=== PATIENT | female | born 1960 | race Caucasian/White ===

== ENCOUNTER 2020-09-19 15:34 | Emergency (ER) | payer OTHER, SELFPAY ==
[2020-09-19 15:46] VITALS: BP 148/81; PULSE 97; RESP 16; TEMP 36.6; O2SAT 99; BMI 25.0
--- NOTE | 2020-09-19 16:04 | XR_ITS ---
WS: [id number] Portable AP upright chest, 09/19/2020 Clinical Data: chest pain Comparison: None. Findings: No nodules, masses or effusions are seen. The heart is normal. The pulmonary vascularity is not increased. No pneumonia or pneumothorax is seen. XR/XR chest 1V portable [id number] Impression: Negative chest.
--- NOTE | 2020-09-19 16:04 | ECG_ITS ---
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 Measurements Intervals [place] Rate: 101 P: 64 [place]: 144 QRS: 69 QRSD: 77 T: 60 QT: 342 QTc: 445 Interpretive Statements SINUS TACHYCARDIA POSSIBLE LEFT ATRIAL ENLARGEMENT [-0.1mV P WAVE IN V1/V2] MODERATE ST DEPRESSION [0.05+ mV ST DEPRESSION] No previous ECG available for comparison Electronically Signed On 09-19-2020 20:13:25 AUTOMATIC DEVELOPER by Sarah Yates M.D. [id number]
[2020-09-19 16:17] LABS: Basophils # 0.1 10^3/uL (0.0-0.1); Basophils % 1.3 %; Eosinophils # 0.1 10^3/uL (0.0-0.8); Eosinophils % 1.7 %; Hematocrit 39.3 % (37.0-47.0); Hemoglobin 12.8 g/dL (11.5-15.3); Lymphocytes # 2.2 10^3/uL (0.8-4.8); Lymphocytes % 37.6 %; Mean Corpuscular HGB Conc 32.6 g/dL (30.0-36.0); Mean Corpuscular Hemoglobin 28.1 pg (28.0-34.0); Mean Corpuscular Volume 86.4 fL (81-99); Mean Platelet Volume 11.4 fL (7.4-10.4); Monocytes # 0.5 10^3/uL (0.2-0.9); Monocytes % 7.9 %; Neutrophils # 3.04 10^3/uL (1.8-7.7); Neutrophils % 51.3 %; Nucleated Red Blood Cells % 0 %; Platelet Count 249 10^3/cmm (130-400); Red Blood Count 4.55 10^6/uL (4.1-5.3); Red Cell Distribution Width 12.5 % (12.1-15.1); White Blood Count 5.9 10^3/uL (4.0-10.0)
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
[2020-09-19] MEDS: sodium chloride 0.9% 1,000 ML 999 ML IV (16:49)
[2020-09-19] MEDS: aspirin 81 mg Chew Tablet 324 MG PO (16:50)
[2020-09-19] MEDS: nitroglycerin 0.4 mg sublingual Tablet SUBLINGUAL ×2 (16:54→17:08)
[2020-09-19 16:56] LABS: Troponin(5th) Baseline 6 ng/L (0-10)
[2020-09-19 16:57] LABS: Alanine Aminotransferase 15 U/L (0-33); Albumin Level 4.4 g/dL (3.5-5.2); Alkaline Phosphatase 46 IU/L (35-105); Aspartate Amino Transferase 17 U/L (0-32); Blood Urea Nitrogen 7 mg/dL (8-23); Calcium 9.5 mg/dL (8.5-10.5); Carbon Dioxide 23 mmol/L (22-29); Chloride 102 mmol/L (98-107); Glomerular Filtration Rate 125.9 mL/min (90-130); Glucose 96 mg/dL (65-115); NT Pro B Type Natriuretic Pept 89 pg/mL (0-125); Osmolality Calculated 282 mOsm/kg (285-295); Sodium 137 mmol/L (136-145); Total Bilirubin 0.4 mg/dL (0.15-1.2); Total Protein 7.4 g/dL (6.6-8.7)
[2020-09-19 16:59] LABS: D Dimer 0.48 ug/mIFEU (0-0.59)
[2020-09-19 17:05] LABS: Anion Gap 15.9 (5-19); Potassium 3.9 mmol/L (3.5-5.1)
[2020-09-19 17:24] LABS: Add Urine Microscopic? YES; Bilirubin Urine Neg (Negative); Blood Urine 2+ (Negative); Glucose Urine UA Norm (Normal); Ketones Urine Negative (Negative); Leukocyte Esterase Urine Trace (Negative); Nitrate Urine Negative (Negative); Protein Urine Neg (Negative); Specific Gravity, Urine 1.005 (1.005-1.030); Urine Appearance Clear (CLEAR); Urine Color Straw (Yellow); Urobilinogen Urine Norm (Negative); pH Urine 7 (5-7)
[2020-09-19 17:27] LABS: RBC Urine 0-4 /hpf (0-2); Squamous Epithelial Cell Urine 0-4 /hpf (0-5)
[2020-09-19 17:28] LABS: Add Urine Culture? No; Bacteria Urine TRACE /hpf
[2020-09-19] MEDS: nitroglycerin 1 gm/inch oint Pkt 0.5 INCH TOPICAL (17:57)
[2020-09-19 17:59] VITALS: BP 116/62; PULSE 85; RESP 22; O2SAT 97
--- NOTE | 2020-09-19 18:04 | ECG_ITS ---
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 Measurements Intervals [place] Rate: 78 P: 62 TN: 149 QRS: 67 QRSD: 74 T: 62 QT: 361 QTc: 413 Interpretive Statements SINUS RHYTHM Compared to ECG 09/19/2020 15:49:51 Sinus tachycardia no longer present ST (T wave) deviation no longer present Electronically Signed On 09-19-2020 20:19:57 SLIME PLANT OPERATOR by Sarah Yates M.D. [id number]
[2020-09-19 18:31] VITALS: BP 114/62; PULSE 88; RESP 18; O2SAT 96
[2020-09-19 19:05] LABS: Troponin 5 2HR 6.62 ng/L (0-10); Troponin 5 2HR Delta 0.62 ABS# (0-10)
[2020-09-19 19:30] VITALS: BP 125/68; PULSE 84; RESP 18; O2SAT 96
[2020-09-19 20:21] VITALS: BP 108/63; PULSE 82; RESP 18; O2SAT 96
== END 2020-09-19 20:23 | disposition home or self-care (01) ==
PROVIDERS: Family Medicine; Emergency Provider Emergency Medicine
DX: R07.9 Chest pain, unspecified (principal)
CPT/HCPCS: 12345; 36415; 71045; 80053; 81001; 83880; 84484; 85025; 85378; 93005; 96360; 99282; 99284; J7030

== ENCOUNTER 2021-03-19 13:26 | Outpatient (CLI) | payer OTHER, SELFPAY ==
--- NOTE | 2021-03-19 13:35 | XR_ITS ---
WS: [id number] Cervical spine, 3 views, 03/19/2021 Clinical Data: CERVICAL PAIN Comparison: None. Findings: No compression fractures are seen. There is degenerative disc narrowing at C5-C6 and C6-C7 and osteophyte formation at these levels. There is loss of the normal lordotic curvature.. There is n o prevertebral soft tissue swelling. The odontoid is unremarkable. The soft tissues of the neck and t he lung apices are normal. XR/XR cervical spine 3V* [id number] Impression: 1. Degenerative disc narrowing at C5-C6 and C6-C7. 2. Osteophytes at C5-C7.
== END 2021-03-19 13:27 | disposition home or self-care (01) ==
LOC: RAD 13:31
PROVIDERS: PCP Registered Nurse; Visit Provider Registered Nurse
DX: M54.2 Cervicalgia (principal); V87.7XXA Person injured in collision between other specified motor vehicles (traffic), initial encounter; M25.78 Osteophyte, vertebrae
CPT/HCPCS: 72040